=== PATIENT | male | born 1995 | race Caucasian/White ===

== ENCOUNTER 2022-11-17 11:40 | Emergency (ER) | payer MEDICAID ==
[~2022-11-17] VITALS: Ht 175.3 cm; Wt 117.9 kg
--- NOTE | 2022-11-17 11:53 | NUR ---
Patient to ER bed 07 to gown for evaluation. Side rails up.
--- NOTE | 2022-11-17 11:55 | NUR ---
Pt brought by family, A&Ox4, pt presents to ER with L shoulder pain after falling from 8-10 feet ladder at work, no KO,pt denies neck pain, no open injuries noted, PERRLA, skin pink and warm, cap refill <3.
--- NOTE | 2022-11-17 11:55 | NUR ---
Note arron in EDM - 11/17/22 at 1214 by [email or web address] Pt brought by , Brenda, pt presents to ER with L shoulder pain after falling from 8-10 feet ladder at work, no KO, skin pink and warm, cap refill <3.
[2022-11-17 11:56] VITALS: BP_SYST 152
--- NOTE | 2022-11-17 12:00 | NUR ---
Dr Richmond evaluating patient at bedside
--- NOTE | 2022-11-17 12:00 | NUR ---
ASSISITED PT OUT OF VEHICLE, PT WAS BROUGHT BY . PT STATED HE FELL OFF LADDER @ WORK AND THE FALL WAS ABOUT 8-10" FT AND LANDED ON HIS LEFT SHOULDER. CLOTHING WAS CUT OFF AND C-COLLAR WAS APLLIED TO PT NECK PER MD.
--- NOTE | 2022-11-17 12:14 | NUR ---
Pt medicated for pain as ordered, well tolerated
[2022-11-17] MEDS ORDERED: MORPHINE 4 MG INJ. 4 MG/ML VIAL IVP ONE (12:15)
--- NOTE | 2022-11-17 12:20 | NUR ---
Pt off the unit for radiology
--- NOTE | 2022-11-17 12:50 | NUR ---
Pt returning from CT on stable condition
--- NOTE | 2022-11-17 13:50 | NUR ---
Pt ambuatory to bathroom, well tolerated
[2022-11-17] MEDS ORDERED: ACET-2634 PO (13:53)
[2022-11-17] MEDS ORDERED: IBUP-1970 PO (13:53)
[2022-11-17] MEDS ORDERED: CYCL10TA24 PO (13:53)
--- NOTE | 2022-11-17 14:04 | NUR ---
Patient given written and verbal discharge instructions and verbalizes understanding. ER MD discussed with patient the results and treatment provided. Patient in stable condition. ID arm band removed. Rx of Tylenol extra strenght, Flexeril, Ibuprofen given. Patient educated on pain management and to follow up with PMD. Pain Scale 0/10. Opportunity for questions provided and answered. Medication side effect fact sheet provided.
[2022-11-17 14:05] VITALS: BP_SYST 152
== END 2022-11-17 14:04 | disposition home or self-care (01) ==
LOC: SED 11:40
DX: S43.402A Unspecified sprain of left shoulder joint, initial encounter (principal); S50.312A Abrasion of left elbow, initial encounter; Z79.899 Other long term (current) drug therapy; W11.XXXA Fall on and from ladder, initial encounter; Y93.89 Activity, other specified; Y92.89 Other specified places as the place of occurrence of the external cause; Y99.8 Other external cause status
CPT/HCPCS: 99284; 71045; 73030; 73060; 73080; 73502; 73552; 96372; J2270